=== PATIENT | male | born 1950 ===

== ENCOUNTER 2016-12-27 08:20 | Emergency (ER) | payer MEDICARE ==
[2016-12-27 08:26] VITALS: BP 164/78; PULSE 69; RESP 16; TEMP 97.5; O2SAT 100
[2016-12-27] MEDS ORDERED: Tetracaine 0.5% Ophth 2 ML BOTTLE OS STA (08:52)
[2016-12-27] MEDS ORDERED: Fluorescein 1 mg Ophthalmic Strip OS ONE (08:53)
--- NOTE | 2016-12-27 08:54 | C.PDOC ---
History Of Present Illness 66 year old male presents to the ED for evaluation of a foreign body sensation to his left eye which began several days ago. Patient states he visited his sister, who was working with metal around their house. Patient denies vision change, or direct trauma/injury to the eye. + clear watery eye discharge. Patient states he is not up-to-date with Tetanus immunization. Time Seen by Provider: 12/27/16 08:43 Chief Complaint (Nursing): Eye Problem History Per: Patient History/Exam Limitations: no limitations Current Symptoms Are (Timing): Still Present Injury To Eye?: No Quality: denies: "Pain" Associated Symptoms: FB Sensation. denies: Decreased Vision, Discharge From Eye Additional History Per: Patient Past Medical History Reviewed: Historical Data, Nursing Documentation, Vital Signs Vital Signs: Last Vital Signs Temp 97.5 F L 12/27/16 09:35 Pulse 69 12/27/16 09:35 Resp 16 12/27/16 09:35 BP 164/78 H 12/27/16 08:25 Pulse Ox 100 12/27/16 12:21 - Medical History PMH: HTN, Hyperlipidemia Surgical History: No Surg Hx Family History: States: Unknown Family Hx - Social History Hx Alcohol Use: No Hx Substance Use: No Review Of Systems Eyes: Positive for: Other (foreign body sensation in left eye ). Negative for: Vision Change Physical Exam - Physical Exam Appears: Non-toxic, No Acute Distress Skin: Normal Color, Warm, Dry Head: Atraumatic, Normacephalic Eye(s): bilateral: PERRL, EOMI, right: Normal Inspection, left: Other ( Fluorescein stained. metallic-appearing foreign body appears to be embedded at iris ) Nose: Normal Oral Mucosa: Moist Neck: Normal Extremity: Normal ROM Neurological/Psych: Oriented x3, Normal Speech, Normal Cognition Gait: Steady ED Course And Treatment O2 Sat by Pulse Oximetry: 100 (on RA) Pulse Ox Interpretation: Normal Progress Note: 0.5% Tetracaine placed in left eye. Left eye Fluorescein stained. Metallic-appearing foreign body noted to be embedded at iris. Able to gently lift most of the foreign body using a Q-tip, but a small portion of the foreign body remains embedded. Patient tolerated well. Case discussed with [facility] family practice nurse practitioner, Dr. Garcia, who instructed patient to follow up in office following ED discharge. On reassessment, patient is resting comfortably, showing no signs of distress and is stable for discharge. Patient is advised to follow up with Dr. Garcia as instructed for further evaluation. Disposition Counseled Patient/Family Regarding: Studies Performed, Diagnosis, Need For Followup - Disposition Referrals: Eduardo Garcia [Staff Provider] - Disposition: HOME/ ROUTINE Disposition Time: 09:31 Condition: STABLE Additional Instructions: PLEASE BE SEEN BY DR. GARCIA AT [facility] IMMEDIATELY UPON DISCHARGE FROM ED. Instructions: Eye Foreign Body (ED) Forms: [facility] (Welsh), Gen Discharge Inst Liberian Print Language: ESTONIAN - Clinical Impression Clinical Impression: Corneal foreign body - PA / [facility] / Resident Statement MD/DO has reviewed & agrees with the documentation as recorded. - Scribe Statement The provider has reviewed the documentation as recorded by the Scribe (Rocio Gupta) All medical record entries made by the Scribe were at my direction and personally dictated by me. I have reviewed the chart and agree that the record accurately reflects my personal performance of the history, physical exam, medical decision making, and the department course for this patient. I have also personally directed, reviewed, and agree with the discharge instructions and disposition.
[2016-12-27] MEDS ORDERED: Fluorescein 1 mg Ophthalmic Strip ONE (09:02)
[2016-12-27] MEDS ORDERED: Tetracaine 0.5% Ophth (OR ONLY) ONE (09:04)
== END 2016-12-27 09:39 | disposition home or self-care (01) ==
LOC: C.ER 08:20
DX: T15.02XA Foreign body in cornea, left eye, initial encounter (principal); X58.XXXA Exposure to other specified factors, initial encounter